=== PATIENT | female | born 1945 | race Caucasian/White ===

== ENCOUNTER → 2017-11-22 | Outpatient (CLI) | payer MEDICARE, OTHER ==
--- NOTE | 2017-11-22 14:23 | Diagnostic Imaging Report ---
INDICATION: Pulsating aorta and abdominal pain. Study is performed to evaluate for aneurysm. FINDINGS: The proximal aorta measures 2.0 cm transverse x 1.9 cm AP. Mid aorta measures 1.6 cm transverse x 1.7 cm AP. Distal aorta is 1.4 cm transverse x 1.1 cm AP. The right iliac is 0.7 x 0.6 cm and the left iliac is 0.8 x 0.8 cm. No periaortic fluid collection is seen. IMPRESSION: No evidence of abdominal aortic aneurysm. Dictated by: Dictated on workstation # [id number]
== END ==
LOC: RAD 12:40
PROVIDERS: ATTEND Family Medicine
DX: R10.9 Unspecified abdominal pain (principal)
CPT/HCPCS: 76775

== ENCOUNTER → 2019-09-26 | Outpatient (CLI) | payer MEDICARE, OTHER | LOC: CARD 08:47 | PROVIDERS: ATTEND Internal Medicine Interventional Cardiology | DX: I07.1 Rheumatic tricuspid insufficiency (principal); I25.10 Atherosclerotic heart disease of native coronary artery without angina pectoris; E78.5 Hyperlipidemia, unspecified; I48.19 Other persistent atrial fibrillation; I49.5 Sick sinus syndrome; Z95.0 Presence of cardiac pacemaker | CPT/HCPCS: 93306 ==